=== PATIENT | female | born 1980 | race Caucasian/White ===

== ENCOUNTER 2018-11-13 14:06 | Emergency (ER) | payer BC ==
[~2018-11-13 14:06] MED LIST: ISOVUE-370 76%-LOCM 1 ML ONE
[2018-11-13 14:34] LABS: #Eosinphils 0.1 thou/uL (0.0-0.7); #Lymphocytes 2.9 thou/uL (1.20-3.40); #Monocytes 0.5 thou/uL (0.11-0.59); #Neutrophils 4.1 thou/uL (1.40-6.50); %Basophils 0.6 % (0.0-1.0); %Eosinophils 1.3 % (0.0-10.0); %Lymphocytes 38.2 % (21.0-51.0); %Monocytes 5.9 % (0.0-10.0); %Neutrophils 54.1 % (42.0-75.0); Hemoglobin 14.3 g/dL (12.0-16.0); Mean Corpuscular HGB CONC 33.3 g/dL (32.0-36.0); Mean Corpuscular Hemoglobin 28.6 pg (27.0-31.0); Mean Platelet Volume 8.2 fL (7.4-10.4); Platelet Count 199 thou/uL (130-400); RBC Distribution Width 12.3 % (11.5-14.5); Red Blood Cell (RBC) Count 4.99 mill/uL (4.20-5.40); White Blood Cell (WBC) Count 7.5 thou/uL (4.8-10.8)
[2018-11-13 14:42] LABS: Bilirubin Negative (Negative); Blood, Urine Negative (Negative); Clarity CLEAR (Clear); Glucose, Urine (Dipstick) Negative (Negative); Leukocyte Negative (Negative); Nitrite Negative (Negative); Protein, Urine (Dipstick) Negative (Neg-Trace); Urobilinogen 0.2 mg/dL (0.2-1.0); pH, Urine 5.5 (5.0-9.0)
[2018-11-13 15:16] LABS: ALT (SGPT) 29 U/L (8-55); AST (SGOT) 23 U/L (5-34); Albumin 4.3 g/dL (3.5-5.0); Alkaline Phosphatase 84 U/L (40-150); Anion Gap 12 mmol/L (10-20); BUN (Urea Nitrogen) 8 mg/dL (7.0-18.7); Bilirubin, Total 0.4 mg/dL (0.2-1.2); Calc. Creatinine Clearance 0 mL/min (70-130); Calcium 9.8 mg/dL (7.8-10.44); Carbon Dioxide 28 mmol/L (22-29); Chloride 104 mmol/L (98-107); Estimated GFR-MDRD 85; Globulin 3.2 g/dL (2.4-3.5); Glucose 95 mg/dL (70-105); Lipase 21 U/L (8-78); Potassium 3.9 mmol/L (3.5-5.1); Protein, Total 7.5 g/dL (6.0-8.3); Sodium 140 mmol/L (136-145)
[2018-11-13] MEDS ORDERED: Morphine 4 MG/ML VIAL ONE ×2 (15:16→18:01)
[2018-11-13] MEDS ORDERED: Ondansetron PF 4 MG/2 ML Vial ONE ×2 (15:16→18:51)
--- NOTE | 2018-11-13 16:06 | ULT ---
RIGHT UPPER QUADRANT ULTRASOUND: Date: 11-13-18 Provided Clinical History: Nausea, vomiting. FINDINGS: The pancreas is largely obscured. The liver demonstrates no evidence for mas or intrahepatic biliary ductal dilatation. The common duct is not dilated. The gallbladder demonstrates no stones, wall thick ening or pericholecystic fluid. Sonographic Miller's sign is documented as negative. The right kidney demonstrates no hydronephrosis or mass. IMPRESSION: No evidence for an acute process. POS: OFF
--- NOTE | 2018-11-13 20:01 | CT ---
ABDOMEN CT WITH CONTRAST PELVIC CT WITH CONTRAST: Date: 11/13/18 HISTORY: Abdominal pain, x1 week. Right upper quadrant pain. Constipation. Diarrhea. COMPARISON: None. FINDINGS: ABDOMEN CT: Lung bases are clear. Heart size is normal. No pericardial effusion. The descending thoracic aorta an d abdominal aorta have normal caliber. No periaortic fat stranding. Portal vein is patent. Unremarkable gallbladder. Liver, spleen, pancreas, and adrenal glands have appropriate enhancement. No gastrohepatic, retrocrural, or periportal lymphadenopathy. There are a few scattered nonspecific mesenteric lymph nodes. No mesenteric mass, lymphadenopathy, fr ee air, or free fluid. Small umbilical hernia containing mesenteric fat is noted. Symmetric enhancement of the kidneys. Bilaterally, no obstructive uropathy. Limited evaluation of the alimentary canal due to lack of oral contrast. Gastric mucosa, duodenum, an d multiple normal caliber small bowel loops are identified. Ileocecal junction is unremarkable. Appen yesenia is not appreciated. Nevertheless, no inflammation at the cecal apex. Colon is decompressed. Occas ional diverticulum. No diverticulitis. CT PELVIS: Hysterectomy changes. No pelvic mass, lymphadenopathy, free air, or free fluid. Unremarkable urinary bladder. No lytic or blastic lesion in osseous structures. Small bone island in right iliac bone. IMPRESSION: No acute abnormality in the abdomen or pelvis. POS: PPP
== END 2018-11-13 19:02 | disposition home or self-care (01) ==
LOC: ERS 14:06
DX: R10.11 Right upper quadrant pain (principal); R19.7 Diarrhea, unspecified; F32.9 Major depressive disorder, single episode, unspecified
CPT/HCPCS: 36415; 74177; 76705; 80053; 81003; 83690; 85025; 96361; 96374; 96375; 96376; J2270; J2405

== ENCOUNTER 2018-11-20 08:30 | Outpatient (CLI) | payer BC ==
--- NOTE | 2018-11-20 12:46 | NM ---
RADIONUCLIDE HEPATOBILIARY SCAN WITH GALLBLADDER EJECTION FRACTION: HISTORY: Right upper quadrant pain. FINDINGS: Early images show physiologic uptake of radiotracer throughout the hepatic parenchyma. The gallbladd er is first imaged at 5 minutes. Uptake is apparent within the small bowel at 35 minutes. After the administration of 8 oz of a fatty meal, in place of CCK, there is rapid excretion of radiotracer fro m the gallbladder to the small bowel. Ejection fraction is calculated at 80%. IMPRESSION: Normal hepatobiliary scan and gallbladder ejection fraction. POS: ALICE
== END 2018-11-20 08:31 | disposition home or self-care (01) ==
LOC: NM 08:30
PROVIDERS: ATTEND Internal Medicine Gastroenterology
DX: R10.11 Right upper quadrant pain (principal); R10.33 Periumbilical pain
CPT/HCPCS: 78227; A9537

== ENCOUNTER 2018-12-19 15:14 | Outpatient (CLI) | payer BC ==
[2018-12-19 16:08] LABS: #Basophils 0.1 thou/uL (0.0-0.2); #Eosinphils 0.1 thou/uL (0.0-0.7); #Monocytes 0.4 thou/uL (0.11-0.59); #Neutrophils 3.9 thou/uL (1.40-6.50); %Basophils 1.5 % (0.0-1.0); %Eosinophils 1.2 % (0.0-10.0); %Lymphocytes 39.8 % (21.0-51.0); %Monocytes 5.2 % (0.0-10.0); %Neutrophils 52.3 % (42.0-75.0); Hemoglobin 13.4 g/dL (12.0-16.0); Mean Corpuscular HGB CONC 33.1 g/dL (32.0-36.0); Mean Corpuscular Volume 87.8 fL (78.0-98.0); Mean Platelet Volume 8.4 fL (7.4-10.4); Platelet Count 173 thou/uL (130-400); RBC Distribution Width 12.6 % (11.5-14.5); Red Blood Cell (RBC) Count 4.63 mill/uL (4.20-5.40); White Blood Cell (WBC) Count 7.5 thou/uL (4.8-10.8)
[2018-12-19 16:27] LABS: ALT (SGPT) 19 U/L (8-55); AST (SGOT) 15 U/L (5-34); Albumin 4.2 g/dL (3.5-5.0); Alkaline Phosphatase 71 U/L (40-150); Anion Gap 11 mmol/L (10-20); BUN (Urea Nitrogen) 10 mg/dL (7.0-18.7); Bilirubin, Total 0.3 mg/dL (0.2-1.2); Calc. Creatinine Clearance 0 mL/min (70-130); Calcium 9.7 mg/dL (7.8-10.44); Carbon Dioxide 26 mmol/L (22-29); Chloride 108 mmol/L (98-107); Estimated GFR-MDRD 87; Globulin 2.9 g/dL (2.4-3.5); Glucose 91 mg/dL (70-105); Potassium 3.8 mmol/L (3.5-5.1); Protein, Total 7.1 g/dL (6.0-8.3); Sodium 141 mmol/L (136-145)
== END 2018-12-19 15:15 | disposition home or self-care (01) ==
LOC: LABBT 15:14
PROVIDERS: ATTEND Specialist
DX: Z01.812 Encounter for preprocedural laboratory examination (principal); K82.8 Other specified diseases of gallbladder
CPT/HCPCS: 80053; 85025

== ENCOUNTER 2018-12-20 07:55 | Day surgery (SDC) | payer BC ==
[2018-12-19 15:32] VITALS: BMI 27.8
[2018-12-20] MEDS ORDERED: Ketorolac Tromethamine 30 MG/ML VIAL ONE (08:32)
[2018-12-20] MEDS ORDERED: Bupivacaine/Epinephrine 0.25% 30 ML VIAL ONE (10:12)
[2018-12-20] MEDS ORDERED: Levofloxacin 500 mg/D5W 100 ml Premix Bag ONE (10:12)
[2018-12-20] MEDS ORDERED: Clindamycin/D5W 900 mg/50 ml Premix Bag ONE (10:13)
[2018-12-20] MEDS ORDERED: Fentanyl 100 MCG/2 ML VIAL ONE ×3 (10:14→12:20)
[2018-12-20] MEDS ORDERED: Midazolam HCl 2 mg/2 ml Vial ONE (10:17)
[2018-12-20] MEDS ORDERED: Ondansetron PF 4 MG/2 ML Vial ONE (10:54)
[2018-12-20] MEDS ORDERED: Dexamethasone 20 MG/5 ML VIAL ONE (10:54)
[2018-12-20] MEDS ORDERED: PROPOFOL 200 MG/20 ML VIAL ONE (10:54)
[2018-12-20] MEDS ORDERED: Glycopyrrolate 0.2 MG/ML 5 ML SYRINGE ONE (10:54)
[2018-12-20] MEDS ORDERED: Rocuronium Bromide 10 MG/ML (10ML VIAL) ONE (10:54)
[2018-12-20] MEDS ORDERED: Lidocaine 1% PF 5 ML VIAL ONE (10:54)
[2018-12-20] MEDS ORDERED: Promethazine HCl 25 MG/ML VIAL ONE (11:42)
--- NOTE | 2018-12-20 23:32 | OP ---
DATE OF PROCEDURE: 12/20/2018 PREOPERATIVE DIAGNOSIS: Biliary dyskinesia with persistent postprandial right upper quadrant pain. POSTOPERATIVE DIAGNOSIS: Biliary dyskinesia with persistent postprandial right upper quadrant pain. PROCEDURES PERFORMED: Laparoscopic cholecystectomy. ANESTHESIA: General endotracheal. INDICATIONS: The patient is a 38-year-old white female. She complains of severe right upper quadrant abdominal pain that occurs specifically after eating. The distribution is typical for gallbladder related pain. All of her preoperative studies have been negative except that she had reproduction of pain with consumption of a fatty meal during her HIDA scan. She presents at this time for laparoscopic cholecystectomy in treatment of these symptoms. PROCEDURE IN DETAIL: Informed consent was obtained. The patient was taken to the operating room where general endotracheal anesthesia was obtained with the patient in the supine position. The abdomen was prepped with Betadine and draped in the usual sterile fashion. 0.25% Marcaine with epinephrine was infiltrated below the umbilicus and a 10 mm infraumbilical incision was created. A Veress needle was passed through this incision into the peritoneal cavity. A pneumoperitoneum was established using carbon dioxide up to a pressure of 15 mmHg. Local anesthetic was infiltrated and 3 additional 5 mm right upper quadrant incisions were created. Through the mid incision, a 5 mm port was passed into the peritoneal cavity. The camera was passed through this port and under direct vision, an 11 port was passed through the infraumbilical incision. The camera was replaced through this port, and under direct vision, 2 additional 5 mm ports were passed through the incisions already created. The gallbladder was grasped and retracted in a cephalad direction. Minimal adhesions were bluntly stripped away from the apex of the gallbladder, and the apex was retracted laterally and inferiorly. Careful dissection was carried out to the apex of the gallbladder to identify the cystic duct and cystic artery. These were each carefully dissected circumferentially. The duct was of normal caliber. Both the duct and the artery were divided between clips, leaving 2 on the side to remain within the abdomen. The gallbladder was then dissected out of the gallbladder fossa using electrocautery and removed through the infraumbilical port site. The fascia was closed with 0 Vicryl suture and a GraNee needle. The right upper quadrant was inspected and irrigated. All irrigant was aspirated. All ports and instruments were removed under direct vision. Pneumoperitoneum was carefully evacuated. Additional local anesthetic was infiltrated into each port site. The skin edges were approximated with 4-0 Monocryl subcuticular sutures, and Dermabond was placed externally. There were no complications. The patient tolerated the procedure well and was taken to the recovery room in stable condition. FINDINGS: The patient had a gallbladder without evidence of disease or inflammation. There were some adhesions in the right upper quadrant and the right abdomen, likely from her prior appendectomy. These were taken down uneventfully. Her cholecystectomy was performed essentially without blood loss, certainly without complication. There was no bile spillage. The gallbladder was removed easily as there were no stones within the gallbladder. The patient tolerated the procedure well and was taken to recovery room in stable condition. Job ID: [id number]
== END 2018-12-20 15:46 | disposition home or self-care (01) ==
LOC: SDC 07:55
PROVIDERS: ATTEND Specialist
PROC: 0FT44ZZ Resection of Gallbladder, Percutaneous Endoscopic Approach (ICD-10-PCS; principal; 2018-12-20)
DX: K82.8 Other specified diseases of gallbladder (principal); J45.909 Unspecified asthma, uncomplicated; F32.9 Major depressive disorder, single episode, unspecified; Z79.899 Other long term (current) drug therapy; Z88.1 Allergy status to other antibiotic agents; Z88.8 Allergy status to other drugs, medicaments and biological substances
CPT/HCPCS: 80053; 85025; 88304; J0131; J1100; J1885; J1956; J2001; J2250; J2405; J2550; J2704; J3010; J3490